=== PATIENT | female | born 1955 | race Caucasian/White ===

== ENCOUNTER 2024-06-20 14:29 | Outpatient (CLI) | payer OTHER, MEDICARE | END 2024-06-20 19:28 | disposition home or self-care (01) | LOC: SCT 14:29 | PROVIDERS: ATTEND Student in an Organized Health Care Education/Training Program | DX: M16.11 Unilateral primary osteoarthritis, right hip (principal) ==

== ENCOUNTER 2024-07-08 08:00 | Outpatient (CLI) | payer OTHER, MEDICARE ==
[~2024-07-08] VITALS: Ht 160 cm; Wt 83.9 kg
[2024-07-08 14:27] LABS: BASOPHILS % (AUTO) 0.8 % (0.0-2.0); EOSINOPHILS # (AUTO) 0.1 K/uL (0.0-0.4); HEMATOCRIT 38.5 % (36-48); HEMOGLOBIN 12.6 g/dL (12.0-16.0); LYMPHOCYTES # (AUTO) 1.6 K/uL (1.0-5.5); LYMPHOCYTES % (AUTO) 30.1 % (20.5-51.5); MEAN CORPUSCULAR HEMOGLOBIN 29 pg (27-31); MEAN CORPUSCULAR HGB CONC 33 % (32-36); MEAN CORPUSCULAR VOLUME 88 fL (79.0-98.0); MONOCYTES # (AUTO) 0.4 K/uL (0.0-1.0); MONOCYTES % (AUTO) 7.4 % (1.7-9.3); NEUTROPHILS # (AUTO) 3.3 K/uL (1.8-7.7); NEUTROPHILS % (AUTO) 60.7 % (40.0-70.0); PLATELET COUNT (AUTO) 299 K/uL (130-430); RED BLOOD CELL COUNT(AUTO) 4.38 MIL/uL (4.2-6.2); RED CELL DISTRIBUTION WIDTH 14.1 % (9.0-15.0); WHITE BLOOD COUNT (AUTO) 5.4 K/uL (4.8-10.8)
[2024-07-08 14:40] LABS: ALBUMIN 3.8 g/dL (3.4-4.8); CALCIUM 9.2 mg/dL (8.4-11.0); CREATININE 1.18 mg/dL (0.55-1.30); INR 0.9 (0.8-1.2); POTASSIUM 4.3 mmol/L (3.5-5.1); PROTHROMBIN TIME 10.2 SECS (9.5-12.5); TOTAL BILIRUBIN 0.5 mg/dL (0.0-1.0); TOTAL PROTEIN, SERUM 7.6 g/dL (6.4-8.3)
== END 2024-07-08 15:00 | disposition home or self-care (01) ==
LOC: SLB 08:00 → EDSTATUS 07-14 07:00
PROVIDERS: ATTEND Student in an Organized Health Care Education/Training Program
DX: Z01.810 Encounter for preprocedural cardiovascular examination (principal); M16.11 Unilateral primary osteoarthritis, right hip; Z96.641 Presence of right artificial hip joint
CPT/HCPCS: 36415; 71046; 80053; 85025; 85610; 85730; 87081